=== PATIENT | male | born 1990 | race American Indian/Alaskan Native ===

== ENCOUNTER 2021-06-11 15:44 | Emergency (ER) | payer SELFPAY ==
[2021-06-11 17:29] LABS: Bilirubin,Urine NEG (Negative); Blood,Urine LG (Negative); Color,Urine Yellow (Yellow); Mucus,Urine FEW /HPF; Urobilinogen,Urine < 2.0 mg/dL (<2.0)
[2021-06-11 17:46] LABS: Amphetamine Screen,Urine Negative; Benzodiazepines Screen,Urine Negative; Methadone Screen,Urine Negative; Opiate Screen,Urine Negative
[2021-06-11 17:59] LABS: Cannabinoid Screen,Urine Positive; Cocaine Screen,Urine Positive
[2021-06-11 18:11] LABS: Basophils # (Auto) 0.1 K/mm3 (0.0-0.1); Basophils % (Auto) 0.8 % (0.0-1.8); Hematocrit 44.3 % (35.5-45.6); Hemoglobin 15.6 gm/dl (11.8-15.2); Lymphocytes # (Auto) 1.4 K/mm3 (1.2-5.4); Lymphocytes % (Auto) 16.9 % (13.4-35.0); Mean Corpuscular HGB Conc 35 % (32-34); Mean Corpuscular Volume 89 fl (84-94); Monocytes # (Auto) 0.7 K/mm3 (0.0-0.8); Monocytes % (Auto) 8.2 % (0.0-7.3); Platelet Count 220 K/mm3 (140-440); Red Blood Count 4.99 M/mm3 (3.65-5.03); Red Cell Distribution Width 14.9 % (13.2-15.2)
[2021-06-11 18:19] VITALS: BP 158/85
[2021-06-11 18:20] LABS: BUN/Creatinine Ratio 16; Blood Urea Nitrogen 16 mg/dL (9-20); Calcium 9.7 mg/dL (8.4-10.2); Hemolysis Index 4
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
[2021-06-11 19:05] LABS: Alanine Aminotransferase 40 units/L (7-56); Albumin 4.9 g/dL (3.9-5)
[2021-06-11 19:15] LABS: Bilirubin,Direct < 0.2 mg/dL (0-0.2)
--- NOTE | 2021-06-13 10:38 | Electrocardiograph Report ---
[facility] Test Date: 2021-06-11 Test Time: 18:53:52 Pat Name: DANILO BUSTAMANTE Department: Room: Gender: M Chief Counsel: NURSE : 1990 Requested By: JEFFREY FRANCIS Order Number: [id number] Reading MD: Leon Cesar Measurements Intervals [place] Rate: 70 P: 40 CO: 174 QRS: -20 QRSD: 83 T: 2 QT: 388 QTc: 418 Interpretive Statements Sinus rhythm No previous ECG available for comparison Electronically Signed On 06-13-2021 10:38:10 EDT by Leon Cesar
== END 2021-06-12 03:00 | disposition left against medical advice (07) ==
LOC: ED 15:44
DX: T88.7XXA Unspecified adverse effect of drug or medicament, initial encounter (principal); T40.5X5A Adverse effect of cocaine, initial encounter; X58.XXXA Exposure to other specified factors, initial encounter; Y93.89 Activity, other specified; Y92.89 Other specified places as the place of occurrence of the external cause; Y99.8 Other external cause status
CPT/HCPCS: 36415; 80048; 80076; 80307; 80320; 81001; 84443; 84484; 85025; 93005; 99283; G0480